=== PATIENT | male | born 1995 | race Caucasian/White ===

== ENCOUNTER 2020-01-20 13:04 | Emergency (ER) | payer BC, SELFPAY ==
--- NOTE | ~2020-01-20 | CT_ITS ---
EXAMINATION: CT brain wo con DATE: 01/20/2020 14:51 INDICATION: Head injury. TECHNIQUE: Computed tomography (CT) of the head was performed without intravenous contrast. The mA wa s adjusted according to patient size. Iterative reconstruction technique was employed. The dose-lengt h product was 1210.67 mGy-cm. COMPARISON: None FINDINGS: Motion artifact is noted. There is no intracranial hemorrhage, acute infarction, or abnorma l intracranial mass lesion. The ventricles are normal in size. The paranasal sinuses are clear. The m astoid air cells are normal. The orbits are normal. There is superior and right lateral scalp soft ti ssue swelling. IMPRESSION: 1. Normal brain. Sensitivity is moderately decreased by motion artifact. Reviewed, dictated and finalized at location A.
--- NOTE | ~2020-01-20 | CT_ITS ---
EXAMINATION: CT cervical spine wo con DATE: 01/20/2020 14:52 INDICATION: Head injury and laceration TECHNIQUE: Computed tomography (CT) of the cervical spine was performed without intravenous contrast. Automated exposure control and iterative reconstruction technique were employed. The dose-length pro duct was 304.55 mGy-cm. COMPARISON: None FINDINGS: Alignment is normal. Vertebral body heights are normal. No fracture. Disc heights are normal. Uncover tebral joints are normal. Mild bilateral facet osteoarthritis at C7-T1. No central canal or neural fo raminal stenosis. Cervical soft tissues are unremarkable. Utilized airway and apices of lungs are richard ar. Plate and screw fixation along the right clavicle. IMPRESSION: 1. No acute osseous abnormality. Reviewed, dictated and finalized at location A.
[2020-01-20 13:04] VITALS: BP 129/75; PULSE 82; RESP 18; TEMP 37.4; O2SAT 99
--- NOTE | 2020-01-20 13:21 | PC.NURSE ---
Pt trying to hit head on wall in ED room 11 on arrival. Pt is alert and not answering questions at this time. Pt states Take off your disguise repeatedly. Pt handcuffed to stretcher, has free movement of limbs. VSS. PD at bedside.
--- NOTE | 2020-01-20 13:47 | ED.GENADULT ---
HPI - General Adult General Chief complaint: Psychiatric Symptoms Stated complaint: HEAD LAC Time Seen by Provider: 01/20/20 13:29 Source: police Mode of arrival: EMS Limitations: other (agitated) History of Present Illness HPI narrative: This patient is a 24 year old male history of schizophrenia who presents in police custody for evaluation of head injury. The staff weapons officer at bedside states patient was arrested and he starting hitting his head on car window. He states patient also hit his head on concrete twice with no LOC. He states he needs medical clearance since patient hit his head. He states patient has history of this in order to prevent arrest. PAtient states is not cooperative with history. He has no complaints other than he is being held against his will. Related Data Allergies Allergy/AdvReac Type Severity Reaction Status Date / Time Penicillins Allergy Severe Nausea And Verified 07/02/17 11:00 Vomiting Review of Systems Review of Systems: All systems reviewed & are unremarkable except as noted in HPI and below PMFSH Family History Family History (Updated 07/02/17 @ 10:59 by DOCTOR UNKNOWN) Mother Patient's mother is in good health Father Patient's father is in good health Social History Social History Smoking status: Never smoker Alcohol intake: current Exam Const: General: no acute distress and alert HENMT: Head: hematoma (small superficial laceration left parietal) right parietal Eyes: Pupils: Equal, round and reactive pupils present EOM: EOMs intact bilaterally Neck: Neck: normal visual inspection and no lymphadenopathy Chest: Chest palpation & inspection: normal inspection of the chest Resp: Effort & Inspection: normal respiratory effort Auscultation: clear to auscultation bilaterally Cardio: Rate: regular rate Rhythm: regular rhythm Heart sounds: no murmurs GI: GI Palp: Yes Soft to palpation, No Tenderness to palpation present (GI), No Guarding due to palpation present (GI) and No Rigid due to palpation Course Reevaluation(s) Reevaluation #1: Patient apparently eloped when he returned to room from CT. Date: 01/20/20 Time: 15:00 Vital Signs Vital signs: Vital Signs Temperature 99.4 F 01/20/20 13:04 Pulse Rate 82 01/20/20 13:04 Respiratory Rate 18 01/20/20 13:04 Blood Pressure 129/75 01/20/20 13:04 Pulse Oximetry 99 01/20/20 13:04 Temperature 99.4 F 01/20/20 13:04 Pulse Rate 89 01/20/20 14:36 Respiratory Rate 14 01/20/20 14:36 Blood Pressure 122/73 01/20/20 14:36 Pulse Oximetry 98 01/20/20 14:36 Medical Decision Making Vital Signs Vital Signs: Vital Signs Temperature 99.4 F 01/20/20 13:04 Pulse Rate 82 01/20/20 13:04 Respiratory Rate 18 01/20/20 13:04 Blood Pressure 129/75 01/20/20 13:04 Pulse Oximetry 99 01/20/20 13:04 Temperature 99.4 F 01/20/20 13:04 Pulse Rate 89 01/20/20 14:36 Respiratory Rate 14 01/20/20 14:36 Blood Pressure 122/73 01/20/20 14:36 Pulse Oximetry 98 01/20/20 14:36 Imaging Data Radiologist's impression: ITS Impressions Head CT 01/20/20 14:59 IMPRESSION: 1. Normal brain. Sensitivity is moderately decreased by motion artifact. Cervical Spine CT 01/20/20 15:01 IMPRESSION: 1. No acute osseous abnormality. Discharge Plan Discharge Clinical Impression: CHI (closed head injury) Patient Disposition: Elopement Ater Seen by Prov Condition: Stable Follow-up/Referrals: PHYSICIAN,HOTEL RECEPTIONIST [Primary Care Provider] -
[2020-01-20 14:36] VITALS: BP 122/73; PULSE 89; RESP 14; O2SAT 98
--- NOTE | 2020-01-20 15:16 | PC.NURSE ---
Per Chery RAMIREZ, Charge nurse pt eloped from ED room 11. Pts handcuffs were removed for CT scan, PD at bedside left room to discuss POC for pt due to making suicidal statements. Pt exited through EMS doors and was followed by PD.
== END 2020-01-20 15:16 | disposition left against medical advice (07) ==
PROVIDERS: Emergency Provider General Practice
DX: S09.90XA Unspecified injury of head, initial encounter (principal); W22.8XXA Striking against or struck by other objects, initial encounter
CPT/HCPCS: 70450; 72125; 99284

== ENCOUNTER 2020-01-27 12:52 | Emergency (ER) | payer BC, SELFPAY ==
[2020-01-27 12:58] VITALS: BP 149/90; PULSE 111; RESP 15; TEMP 36.9; O2SAT 98
--- NOTE | 2020-01-27 13:15 | PC.NURSE ---
ERP Dr. Oquendo at bedside for assessment.
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
[2020-01-27 13:43] LABS: Basophils Absolute Auto 0.1 K/mm3 (0.0-0.1); Basophils Percent Auto 0.5 % (0.2-1.2); Eosinophils Absolute Auto 0.4 K/mm3 (0-0.3); Eosinophils Percent Auto 4.5 % (0-4.4); Hematocrit 42.1 % (42.0-52.0); Hemoglobin 14.6 g/dL (14.0-18.0); Immature Granulocyte Absolute 0.04 K/mm3 (0.00-0.031); Immature Granulocyte Percent A 0.4 % (0-0.5); Lymphocytes Percent Auto 18.7 % (18.3-44.2); Mean Corpuscular HGB Conc 34.7 g/dl (32-36); Mean Corpuscular Hemoglobin 29.9 pg (26-34); Mean Corpuscular Volume 86.1 fl (80-100); Mean Platelet Volume 11.4 fl (7.4-10.4); Monocytes Absolute Auto 0.8 K/mm3 (0.1-0.6); Monocytes Percent Auto 8.7 % (2.6-8.5); Neutrophils Absolute Auto 6.1 K/mm3 (1.3-6.7); Neutrophils Percent Auto 67.2 % (45.5-73.1); Platelet Count Result 162 k/mm3 (150-375); Red Blood Count 4.89 M/mm3 (4.6-6.20); Red Cell Distribution Width 12.8 % (11.5-14.5); White Blood Count 9.1 K/mm3 (4.5-10.0)
[2020-01-27 13:52] LABS: Add Urine Microscopic? YES; Appearance Urine Clear (Clear); Bilirubin Urine Negative (Negative); Blood Urine Negative (Negative); Color Urine Yellow (Yellow); Glucose Urine UA Negative (Negative); Ketones Urine Negative (Negative); Leukocyte Esterase Ur Negative LEU/UL (Negative); Mucus Urine Rare /lpf; Nitrate Urine Negative (Negative); Protein Urine Negative (Negative); RBC Urine 0-2 /hpf (0-2); Specific Grav Ur 1.025 (1.001-1.035); WBC Urine 0-3 /hpf
[2020-01-27 13:58] LABS: Alanine Aminotransferase 48 U/L (4-50); Alkaline Phosphatase 56 U/L (38-126); Aspartate Amino Transferase 55 U/L (17-59); Bilirubin,Total 0.2 mg/dL (0.2-1.3); Blood Urea Nitrogen 16 mg/dL (9-20); Calcium 8.8 mg/dL (8.4-10.2); Carbon Dioxide 27 mmol/L (22-30); Chloride 105 mmol/L (98-107); Estimated CRCL calculation 136 ml/min; Estimated Glomerular Filt Rate > 60; Glucose 110 mg/dL (75-110); Potassium 4.4 mmol/L (3.4-5.0); Sodium 137 mmol/L (137-145)
[2020-01-27 13:59] LABS: Barbiturate Screen Urine Negative (Negative); Benzodiazepines Screen Urine Negative (Negative)
[2020-01-27 14:00] LABS: Acetaminophen < 10 ug/mL (10-30); Ethanol < 10 mg/dL (<10); Salicylate < 1.0 mg/dL (2-20)
[2020-01-27 14:27] LABS: Cannabinoid Screen Urine Positive (Negative); Cocaine Screen Urine Negative (Negative); Methadone Screen Urine Negative (Negative); Opiate Screen Urine Negative (Negative); Phencyclidine Screen Urine Negative (Negative)
[2020-01-27 14:28] LABS: Amphetamine Screen Urine Positive (Negative)
[2020-01-27 14:29] LABS: Thyroid Stimulating Hormone 0.879 uIU/mL (0.465-4.680)
--- NOTE | 2020-01-27 16:13 | PC.NURSE ---
PER ARLETTE FROM CRISIS SHE IS WORKING ON PT PLACEMENT, STATES THAT SHE HAS BEEN DENIED A BED FROM [facility], WILL CONTINUE TO ATTEMPT.
--- NOTE | 2020-01-27 16:23 | PC.NURSE ---
PT REPORT GIVEN TO JAMES CAMPBELL AT THIS TIME, SHE HAS ASSUMED PT CARE. PT RESTING IN ROOM 15, VSS, SITTER AT BEDSIDE.
[2020-01-27 16:39] VITALS: BP 122/81; PULSE 79; RESP 18; O2SAT 99
[2020-01-27] MEDS: LORAZEPAM 0.5 MG TABLET PO ×2 (18:13→22:35)
[2020-01-27 18:36] VITALS: BP 142/91; PULSE 91; RESP 18; O2SAT 100
--- NOTE | 2020-01-27 18:50 | PC.NURSE ---
[facility] called and states they have no beds
--- NOTE | 2020-01-27 20:08 | PC.NURSE ---
1999- pt standing outside of room, asked to return to the room. pt did so, he was then looking at the EMS doors. Sitter still at bedside, security notified. Security at bedside.
--- NOTE | 2020-01-27 22:50 | PC.NURSE ---
PACKET FAXED TO [facility] AT 7724 AT [phone].
--- NOTE | 2020-01-28 00:59 | PC.NURSE ---
ON 01/27/2020 AT 2226 SALOMON CALLED FROM [facility], THIS NURSE WAS UNAVAILABLE TO SPEAK WITH HER AT THAT TIME. US PICKARD TOOK MESSAGE TO CALL [facility] BACK AT [phone]. THIS RN CALLED [facility] BACK AT 2238, LEFT MESSAGE FOR [facility]. NO RETURN CALL FROM [facility] OF [facility], AT WHICH TIME THIS RN CALLED AGAIN, AGAIN NO ANSWER AND MESSAGE LEFT FOR [facility].
--- NOTE | 2020-01-28 02:55 | PC.NURSE ---
Per Olivia at [facility], she is waiting to hear from the MD to call her back from her facility.
[2020-01-28 06:07] VITALS: BP 124/65; PULSE 70; RESP 18; O2SAT 99
[2020-01-28 07:19] VITALS: BP 101/49; PULSE 77; RESP 20; TEMP 36.6; O2SAT 98
[2020-01-28] MEDS: LORAZEPAM 0.5 MG TABLET PO (10:58)
--- NOTE | 2020-01-28 11:58 | PC.NURSE ---
Report given to [facility] at this time. Transferred to [facility] at this time.
== END 2020-01-28 12:21 ==
PROVIDERS: Emergency Provider Emergency Medicine
DX: F20.9 Schizophrenia, unspecified (principal)
CPT/HCPCS: 36415; 80053; 80307; 81001; 84443; 85025; 99285; A9270

== ENCOUNTER 2020-02-04 14:13 | Emergency (ER) | payer BC, SELFPAY ==
[2020-02-04 14:22] VITALS: BP 139/118; PULSE 126; RESP 14; TEMP 36.7; O2SAT 99
[2020-02-04] MEDS: ceFAZolin SODIUM 1 GM VIAL IM (15:26)
[2020-02-04] MEDS: TETANUS,DIPHTHERIA,AC PERTUSSIS ADULT (0.5 ML) BOOSTRIX IM (15:27)
[2020-02-04] MEDS: WATER, STERILE FOR INJECTION 10 ML VIAL XX ×2 (15:28→16:40)
--- NOTE | 2020-02-04 15:34 | PC.NURSE ---
[place] [employer] Officer Wesley Vann at bedside with Pt. Pt states that he is a nuclear bomb and that if he falls asleep he will explode. Pt. continues to say the n word and using a lot of profanity. Pt. advised we do not tolerate that kind of behavior here and Pt. is unable to be redirected.
--- NOTE | 2020-02-04 15:39 | PC.NURSE ---
Pt. in police custody, hand cuffed to bed due to aggression and known to self-harm themselves. Pt. is very manic at this time.
--- NOTE | 2020-02-04 16:25 | PC.NURSE ---
Pt. not cooperating with EDP for suturing. Attempted to compromise with Pt. to remove one handcuff to do procedure and Pt. refusing. Pt. yelling and flailing feet. It is not safe for EDP to placed sutures with Pt. behavior. Pt. is still not SI/HI at this time. RN attempted to talk Pt. into letting EDP place suture and still uncooperative. Per EDP via verbal order readback, wrap the wound in a dressing.
[2020-02-04] MEDS: OLANZapine 10 MG INJ VIAL 5 MG IM (16:40)
--- NOTE | 2020-02-04 16:42 | PC.NURSE ---
Pt. is becoming loud and verbally abusive in PD cuffs, shouting profanities and inappropriate words. Per EDP via verbal order readback, give 5mg IM of Olanzapine to help with Pt. agitation and hallucinations. Will reevaluate Pt. to see if Pt. will be able to let EDP suture Pt.
--- NOTE | 2020-02-04 16:43 | PC.NURSE ---
2.1 ml of sterile water was used to mix the olanzapine in the via not 10ml. Only 5mg (1ml) was administered per EDP orders.
--- NOTE | 2020-02-04 17:40 | PC.NURSE ---
Pt. cooperated with EDP and RN to have sutures placed. Procedure was successful. Dirt and dried blood removed off Pt. Will give Pt. paper scrubs and socks prior to discharge.
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
--- NOTE | 2020-02-04 18:01 | PC.NURSE ---
Pt. requested to use the rest room prior to discharge. Pt. wheeled to the rest room with PD and once Pt. sat onto the toilet the Pt. threw themselves off the toilet. Pt refused paper scrubs and socks and became uncooperative. Pt. was discharged into police custody and was wheeled out to their police cruiser.
[2020-02-04 18:03] VITALS: BP 135/100; PULSE 102; RESP 16; O2SAT 99
== END 2020-02-04 18:06 ==
PROVIDERS: Emergency Provider Family Medicine
DX: S91.312A Laceration without foreign body, left foot, initial encounter (principal); W26.9XXA Contact with unspecified sharp object(s), initial encounter; Z23 Encounter for immunization; F20.9 Schizophrenia, unspecified
CPT/HCPCS: 12002; 90471; 90715; 96372; 99284; J0690

== ENCOUNTER 2020-04-22 12:25 | Emergency (ER) | payer BC, SELFPAY ==
[2020-04-22] VITALS (9 sets, daily range): BP systolic 105–166; BP diastolic 54–99; PULSE 70–118; RESP 14–117; O2SAT 97–100
--- NOTE | ~2020-04-22 | XR_ITS ---
EXAMINATION: XR chest 1V portable 04/22/2020 12:45 INDICATION: Altered mental status. Dyspnea. PROCEDURE: AP portable chest COMPARISON: 05/30/2018 FINDINGS: The lungs are clear. The cardiomediastinal silhouette is within normal limits. There are no pleural effusions. There is no pneumothorax suspected. IMPRESSION: 1: NO ACUTE CARDIOPULMONARY DISEASE. Reviewed, dictated and finalized at location A.
[2020-04-22 12:46] LABS: Basophils Percent Auto 0.4 % (0.2-1.2); Eosinophils Percent Auto 0.1 % (0-4.4); Hematocrit 44.1 % (42.0-52.0); Hemoglobin 14.8 g/dL (14.0-18.0); Immature Granulocyte Absolute 0.02 K/mm3 (0.00-0.031); Immature Granulocyte Percent A 0.3 % (0-0.5); Lymphocytes Absolute Auto 2.51 K/mm3 (0.9-3.2); Lymphocytes Percent Auto 35.5 % (18.3-44.2); Mean Corpuscular HGB Conc 33.6 g/dl (32-36); Mean Corpuscular Hemoglobin 28.5 pg (26-34); Mean Platelet Volume 10.8 fl (7.4-10.4); Monocytes Absolute Auto 0.6 K/mm3 (0.1-0.6); Monocytes Percent Auto 8.3 % (2.6-8.5); Neutrophils Absolute Auto 3.9 K/mm3 (1.3-6.7); Neutrophils Percent Auto 55.4 % (45.5-73.1); Platelet Count Result 259 k/mm3 (150-375); Red Blood Count 5.19 M/mm3 (4.6-6.20); Red Cell Distribution Width 12.2 % (11.5-14.5); White Blood Count 7.1 K/mm3 (4.5-10.0)
[2020-04-22 12:56] LABS: Magnesium 2.2 mg/dL (1.6-2.3)
--- NOTE | 2020-04-22 12:58 | ECG_ITS ---
Measurements Intervals [place] Rate: 128 P: 66 HI: 129 QRS: 83 QRSD: 90 T: 0 QT: 334 QTc: 489 Interpretive Statements SINUS TACHYCARDIA ST-T WAVE ABNORMALITY IN INFERIOR LEADS- CONSIDER ISCHEMIA BASELINE ARTIFACT- I, II, AVR, AVF, V3 ABNORMAL ECG Electronically Signed On 04-22-2020 14:23:33 CDT by Phillip Gardiner D.O.
[2020-04-22 13:00] LABS: Alanine Aminotransferase 24 U/L (4-50); Albumin Level 4.3 g/dL (3.5-5.1); Alkaline Phosphatase 66 U/L (38-126); Anion Gap 17 mmol/L (8-16); Aspartate Amino Transferase 35 U/L (17-59); Bilirubin,Total 0.2 mg/dL (0.2-1.3); Blood Urea Nitrogen 11 mg/dL (9-20); Calcium 8.6 mg/dL (8.4-10.2); Carbon Dioxide 20 mmol/L (22-30); Chloride 104 mmol/L (98-107); Estimated CRCL calculation 104 ml/min; Estimated Glomerular Filt Rate > 60; Glucose 114 mg/dL (75-110); Potassium 3.5 mmol/L (3.4-5.0); Sodium 141 mmol/L (137-145)
[2020-04-22 13:02] LABS: Ethanol 185 mg/dL (<10)
--- NOTE | 2020-04-22 13:09 | PC.NURSE ---
called lab at [id number] to add on CK
--- NOTE | 2020-04-22 13:15 | PC.NURSE ---
PT TO ED WRITHING, MAKING NO SENSE. PT UNABLE TO RESPOND POSITIVELY TO STAFF. ORDER FROM DR CORBETT TO PLACE THE PT IN SOFT RESTRAINTS
[2020-04-22] MEDS: HALOPERIDOL LACTATE 5 MG/ML VIAL 10 MG IV PUSH (13:16)
[2020-04-22] MEDS: LACTATED RINGERS 1,000 ML 999 ML IV CONT (13:16)
[2020-04-22 13:18] LABS: Creatine Kinase 126 U/L (55-170)
[2020-04-22 13:20] LABS: Add Urine Microscopic? NO; Appearance Urine Clear (Clear); Bilirubin Urine Negative (Negative); Blood Urine Negative (Negative); Color Urine Straw (Yellow); Glucose Urine UA Negative (Negative); Ketones Urine Negative (Negative); Leukocyte Esterase Ur Negative LEU/UL (Negative); Nitrate Urine Negative (Negative); Protein Urine Negative (Negative); Specific Grav Ur 1.005 (1.001-1.035); Urobilinogen Urine Negative mg/dL (<2.0)
[2020-04-22 13:31] LABS: Amphetamine Screen Urine Negative (Negative); Barbiturate Screen Urine Negative (Negative); Benzodiazepines Screen Urine Negative (Negative); Cannabinoid Screen Urine Positive (Negative); Cocaine Screen Urine Negative (Negative); Methadone Screen Urine Negative (Negative); Opiate Screen Urine Negative (Negative); Phencyclidine Screen Urine Negative (Negative)
--- NOTE | 2020-04-22 13:48 | ED.AMS ---
HPI - Altered Mental Status General Chief Complaint: Altered Mental Status Stated Complaint: combative Time Seen by Provider: 04/22/20 12:33 Source: EMS and police Mode of arrival: EMS Limitations: clinical condition History of Present Illness HPI narrative: 25-year-old male Cannot get any history from him but according to EMS he is pretty well known to them He is previously been here a couple of times with psych related issues He was brought to the attention of the police because of some bizarre behaviors happening in the community EMS gave him ketamine for sedation When he arrives here he is sedated and giggling complaint: altered mental status Related Data Home Medications Medication Instructions Recorded Confirmed olanzapine [Zyprexa] 2.5 mg PO DAILY 01/27/20 Allergies Allergy/AdvReac Type Severity Reaction Status Date / Time Penicillins Allergy Severe Nausea And Verified 01/27/20 13:17 Vomiting Review of Systems Review of Systems: ROS unobtainable: Yes unobtainable due to medical condition and unobtainable due to mental status PMFSH Social History Social History Smoking status: Never smoker Alcohol intake: current Gender identity (if verbalized by the patient): Male Exam Const: General: no acute distress; No alert Nutritional Appearance: well nourished Orientation/consciousness: No patient oriented x3 Limitations: altered mental status HENMT: Head: normocephalic and atraumatic Ears: external ears normal General nose exam: No nasal discharge present and no epistaxis Face and sinus: face symmetric Mouth: Yes lip normal, Yes tongue normal and Yes moist mucous membranes Throat: other (No exudate, no erythema) Eyes: Conjunctivae: conjunctivae normal Sclera: sclerae normal Pupils: Equal, round and reactive pupils present EOM: EOMs intact bilaterally Neck: Neck: full ROM, no lymphadenopathy and supple Thyroid: thyroid normal Chest: Chest palpation & inspection: no tenderness Resp: Effort & Inspection: normal respiratory effort Auscultation: clear to auscultation bilaterally, no rales, no rhonchi, no wheezes and other (breath sounds equal) Cardio: Rate: regular rate Rhythm: regular rhythm Heart sounds: no gallops and no murmurs GI: Inspection: non-distended GI Palp: No abdominal tenderness and Yes Soft to palpation Auscultation: other (bowel sounds present) : General: Yes no CVA tenderness Back/Spine/Pelvis: Thoracic/Lumbar Spine: thoracic and lumbar spine normal to inspection Skin: General skin exam: normal color and no rashes or lesions noted Neuro: General: No patient oriented x3 (alert), moves all extremities and no focal motor deficits Cranial nerves: Yes facial symmetry Speech: No normal speech Motor exam (neuro): Motor abnormalities not present Extrem: General: normal to inspection, full ROM and no pedal edema Course Vital Signs Vital signs: Vital Signs Pulse Rate 118 H 04/22/20 12:21 Respiratory Rate 117 H 04/22/20 12:21 Blood Pressure 166/99 H 04/22/20 12:21 Pulse Oximetry 98 04/22/20 12:21 Pulse Rate 68 04/23/20 07:11 Respiratory Rate 19 04/23/20 07:11 Blood Pressure 109/89 04/23/20 07:11 Pulse Oximetry 99 04/23/20 07:11 MDM - Altered Mental Status MDM Narrative Medical decision making narrative: Plan to sedate, eval for intoxicants, sober re-eval Final dispo pending at signout Lab Data Result diagrams: 04/22/20 12:38 04/22/20 12:38 Labs: Lab Results 04/22/20 04/22/20 04/22/20 Range/Units 12:36 12:36 12:38 WBC 7.1 (4.5-10.0) K/mm3 RBC 5.19 (4.6-6.20) M/mm3 Hgb 14.8 (14.0-18.0) g/dL Hct 44.1 (42.0-52.0) % MCV 85.0 (80-100) fl MCH 28.5 (26-34) pg MCHC 33.6 (32-36) g/dl RDW 12.2 (11.5-14.5) % Plt Count 259 D (150-375) k/mm3 MPV 10.8 H (7.4-10.4) fl Immature Gran % (Au
--- NOTE | 2020-04-22 14:00 | PC.NURSE ---
PT STILL DISORIENTED, ACTING AND SPEAKING BIZARRELY, TRYING TO CURSE OUT STAFF AN THREATENING TO KILL REMAINS IN SOFT RESTRAINTS, SITTER AT BEDSIDE
--- NOTE | 2020-04-22 15:00 | PC.NURSE ---
BOUNCING UP AND DOWN ON BED, HARD TIME BEING REDIRECTED. PT WOULD THEN LAY BACK DOWN. PT STILL DISORIENTED REMAINS IN SOFT RESTRAINTS SITTER AT BEDSIDE
--- NOTE | 2020-04-22 15:30 | PC.NURSE ---
called lab to add on Free T4 at 1530
[2020-04-22 16:03] LABS: Free T4 Free Thyroxine 1.43 ng/mL (0.78-2.19)
--- NOTE | 2020-04-22 17:10 | PC.NURSE ---
PT STARTING TO SHOW SIGNS OF REGAINING CALMNESS, PT REMOVED FROM ANKLE RESTRAINTS, MADE AWARE THAT OTHER RESTRAINTS WOULD BE REMOVED SHORTLY IF BEHAVIOR CONTINUED TO IMPROVE
--- NOTE | 2020-04-22 18:00 | PC.NURSE ---
PT APPEARED TO BE SLEEPING, EQUAL CHEST RISE AND FALL NOTED, PT NOW OUT OF ALL RESTRAINTS. SITTER STILL AT BEDSIDE
--- NOTE | 2020-04-22 19:30 | PC.NURSE ---
pt remains in bed, eyes closed, equal chest rise and fall no negative behaviors noted sitter at bedside
[2020-04-23] VITALS (8 sets, daily range): BP systolic 98–126; BP diastolic 46–89; PULSE 51–68; RESP 12–19; O2SAT 97–99
== END 2020-04-23 07:13 | disposition home or self-care (01) ==
PROVIDERS: Emergency Medicine; Emergency Provider Emergency Medicine
DX: R41.82 Altered mental status, unspecified (principal); F12.921 Cannabis use, unspecified with intoxication delirium
CPT/HCPCS: 36415; 51701; 71045; 80053; 80307; 81003; 82550; 83735; 84439; 84443; 85025; 93005; 96361; 96374; 99285; J1630; J7120

== ENCOUNTER 2020-05-04 06:08 | Emergency (ER) | payer BC, SELFPAY ==
[2020-05-04 06:06] VITALS: BP 164/93; PULSE 78; RESP 16; TEMP 36.8; O2SAT 100
--- NOTE | 2020-05-04 06:25 | ECG_ITS ---
Measurements Intervals [place] Rate: 87 P: 75 MA: 104 QRS: 91 QRSD: 98 T: 21 QT: 351 QTc: 422 Interpretive Statements SINUS RHYTHM WITH MARKED SINUS ARRHYTHMIA ATRIAL PREMATURE COMPLEX RIGHT AXIS DEVIATION NONSPECIFIC ST & T-WAVE ABNORMALITY- ANTEROLAT/INF LEADS BASELINE ARTIFACT- I, II, AVR, AVL BORDERLINE ECG Electronically Signed On 05-04-2020 11:09:48 CDT by Phillip Gardiner D.O.
[2020-05-04 06:39] LABS: Basophils Percent Auto 0.4 % (0.2-1.2); Hematocrit 47.4 % (42.0-52.0); Hemoglobin 15.7 g/dL (14.0-18.0); Immature Granulocyte Absolute 0.06 K/mm3 (0.00-0.031); Immature Granulocyte Percent A 0.5 % (0-0.5); Lymphocytes Absolute Auto 2.14 K/mm3 (0.9-3.2); Lymphocytes Percent Auto 18.7 % (18.3-44.2); Mean Corpuscular HGB Conc 33.1 g/dl (32-36); Mean Corpuscular Volume 84.6 fl (80-100); Monocytes Absolute Auto 0.9 K/mm3 (0.1-0.6); Monocytes Percent Auto 8.1 % (2.6-8.5); Neutrophils Absolute Auto 8.3 K/mm3 (1.3-6.7); Neutrophils Percent Auto 72.3 % (45.5-73.1); Platelet Count Result 246 k/mm3 (150-375); Red Cell Distribution Width 12.5 % (11.5-14.5); White Blood Count 11.4 K/mm3 (4.5-10.0)
[2020-05-04 06:51] LABS: Acetaminophen < 10 ug/mL (10-30); Alanine Aminotransferase 17 U/L (4-50); Albumin Level 4.7 g/dL (3.5-5.1); Alkaline Phosphatase 82 U/L (38-126); Anion Gap 12 mmol/L (8-16); Aspartate Amino Transferase 28 U/L (17-59); Bilirubin,Total 0.7 mg/dL (0.2-1.3); Blood Urea Nitrogen 13 mg/dL (9-20); Calcium 9.8 mg/dL (8.4-10.2); Carbon Dioxide 26 mmol/L (22-30); Chloride 100 mmol/L (98-107); Estimated CRCL calculation 101 ml/min; Estimated Glomerular Filt Rate > 60; Ethanol < 10 mg/dL (<10); Glucose 145 mg/dL (75-110); Potassium 3.5 mmol/L (3.4-5.0); Salicylate < 1.0 mg/dL (2-20); Sodium 138 mmol/L (137-145)
--- NOTE | 2020-05-04 06:51 | ED.GENADULT ---
HPI - General Adult General Chief complaint: Psychiatric Symptoms <Jeremías Blake MD - Last Filed: 05/05/20 07:06> Stated complaint: SWALLOWED UNKNOWN AMT OF PILLS <Jeremías Blake MD - Last Filed: 05/05/20 07:06> Time Seen by Provider: 05/04/20 07:01 <Jeremías Blake MD - Last Filed: 05/05/20 07:06> History of Present Illness HPI narrative: Pt was stopped by PD and when he was questioned took a bunch of pills in his pocket which he claims is his ADD meds . Pt denies suicidal or homicial ideations. <Jeremías Blake MD - Last Filed: 05/05/20 07:06> Related Data Home medications: Home Medications Medication Instructions Recorded Confirmed olanzapine [Zyprexa] 2.5 mg PO DAILY 01/27/20 <Jeremías Blake MD - Last Filed: 05/05/20 07:06> Allergies/adverse reactions: Allergies Allergy/AdvReac Type Severity Reaction Status Date / Time Penicillins Allergy Severe Nausea And Verified 01/27/20 13:17 Vomiting <Jereímas Blake MD - Last Filed: 05/05/20 07:06> Review of Systems Review of Systems: All systems reviewed & are unremarkable except as noted in HPI and below <Jeremías Blake MD - Last Filed: 05/05/20 07:06> Constitutional: Constitutional: Denies body ache(s), Denies chills, Denies excessive sweating, Denies fatigue, Denies fever(s), Denies headache(s), Denies lethargy, Denies malaise, Denies weakness and Denies weight loss <Jeremías Blake MD - Last Filed: 05/05/20 07:06> Eyes: Eyes: Denies blurry vision, Denies change in vision and Denies loss of vision <Jeremías Blake MD - Last Filed: 05/05/20 07:06> ENT: Denies dizziness, Denies ear discharge, Denies headache(s), Denies lip swelling, Denies epistaxis, Denies nasal congestion, Denies neck pain, Denies throat swelling and Denies tongue swelling <Jeremías Blake MD - Last Filed: 05/05/20 07:06> Cardiovascular: Cardiovascular: Denies chest pain, Denies chest pain at rest, Denies chest pain with activity, Denies diaphoresis, Denies rapid heart rate, Denies edema, Denies irregular heart rhythm, Denies lightheadedness, Denies palpitations, Denies dyspnea and Denies dyspnea on exertion <Jeremías Blake MD - Last Filed: 05/05/20 07:06> Respiratory: Respiratory: Denies chest congestion, Denies cough, Denies hemoptysis, Denies dyspnea and Denies dyspnea on exertion <Jeremías Blake MD - Last Filed: 05/05/20 07:06> Gastrointestinal: Gastrointestinal: Denies abdominal pain, Denies melena, Denies hematochezia, Denies diarrhea, Denies nausea, Denies vomiting and Denies hematemesis <Jeremías Blake MD - Last Filed: 05/05/20 07:06> Musculoskeletal: Musculoskeletal: Denies abnormal gait, Denies deformity, Denies joint swelling, Denies limited range of motion, Denies neck pain and Denies numbness <Jeremías Blake MD - Last Filed: 05/05/20 07:06> Neurologic: Denies Abnormal speech present, Denies abnormal gait, Denies confusion, Denies dizziness, Denies headache(s), Denies focal weakness, Denies loss of vision, Denies numbness, Denies Other visual disturbances, Denies Sensory deficit (Neuro) and Denies weakness <Jeremías Blake MD - Last Filed: 05/05/20 07:06> Psychiatric: Psychiatric: Denies confusion and Denies depression <Jeremías Blake MD - Last Filed: 05/05/20 07:06> Endocrine: Endocrine: Denies cold intolerance, Denies excessive sweating, Denies fatigue, Denies heat intolerance and Denies palpitations <Jeremías Blake MD - Last Filed: 05/05/20 07:06> Hematologic/Lymphatic: Hematologic/Lymphatic: Denies easy bleeding and Denies easy bruising <Jeremías Blake MD - Last Filed: 05/05/20 07:06> Allergic/Immunologic: Allergic/Immunologic: Denies lip swelling, Denies throat swelling and Denies tongue swelling <Jeremías Blake MD - Last Filed: 05/05/20 07:06> [facility] Social History Social History: Social History Smo
[2020-05-04] MEDS: LORazepam INJ (*CRX) 2 MG/ML VIAL IM ×2 (08:05→15:20)
--- NOTE | 2020-05-04 08:05 | PC.NURSE ---
pt refused iv start and ns infusion. pt informed nurse i will shoot you in your head with my sniper travis if you stick me . ativan 2 mg im per physician's orders. pt abdelrahman injection well without incident. continues to refuse iv start, fluids and urinary straight cath. pt continues to ramble continuously about politics, animals, foreign persons, and sex. rails up x 2 for safety after sedative given. lights out for comfort and calming. furniture and projectile objects removed from room. pt remains on telemetry and bp but will not leave spo2 on finger. md and security staff aware of pt behavior.
[2020-05-04 08:12] VITALS: BP 132/87; PULSE 110; RESP 20
--- NOTE | 2020-05-04 08:56 | PC.NURSE ---
pt continues to talk nonsensical nonstop. pt continues to refuse urinary cath. pt informed that a cath will be placed within next hour if he does not provide sample.
[2020-05-04 09:51] LABS: Barbiturate Screen Urine Negative (Negative); Benzodiazepines Screen Urine Negative (Negative)
[2020-05-04 10:05] LABS: Cannabinoid Screen Urine Negative (Negative); Cocaine Screen Urine Negative (Negative); Methadone Screen Urine Negative (Negative); Opiate Screen Urine Negative (Negative); Phencyclidine Screen Urine Negative (Negative)
[2020-05-04 10:10] LABS: Amphetamine Screen Urine Positive (Negative)
--- NOTE | 2020-05-04 11:08 | PC.NURSE ---
sitter now in doorway for close obs due to pt trying to leave room. pt has intermittent periods of verbal aggression. pt has not attempted to harm staff or himself
[2020-05-04 15:20] VITALS: BP 151/108; PULSE 154; RESP 18; O2SAT 99
--- NOTE | 2020-05-04 15:20 | PC.NURSE ---
ativan im per md order. pt's heart rate 150 and pt is refusing iv start and iv fluids. pt agitated again and pacing room.
--- NOTE | 2020-05-04 16:24 | PC.NURSE ---
pacing in doorway but not aggressive to staff.
[2020-05-04 16:44] LABS: SARS-CoV-2 RNA PCR Negative
[2020-05-04 17:51] VITALS: BP 141/94; PULSE 129; RESP 18; O2SAT 97
[2020-05-04] MEDS: SODIUM CHLORIDE 0.9% IV 1,000 ML 999 ML IV CONT (18:42)
--- NOTE | 2020-05-04 19:16 | PC.NURSE ---
pt pulled out iv cath intact while fluids infusing. pt rec'd approx 200 cc. notified. will not restart iv. pt calling family for ride home
--- NOTE | 2020-05-04 19:18 | PC.NURSE ---
Assumed care of pt. at this time. Report from JAMES Langston
--- NOTE | 2020-05-04 19:18 | PC.NURSE ---
Pt. on phone w/ sitter at side calling for a ride home.
--- NOTE | 2020-05-04 19:22 | PC.NURSE ---
pt bolted for door while walking back to room after using phone. pt rushed past sitter and ed staff. unable to catch pt. pt pushed through electric ems doors. staff went to parking lot to encourage pt to return to room to collect belongings. pt did not come back to ed and kept walking towards edge of hospital property. [place] police called to inform that pt roaming area in green psych scrubs
--- NOTE | 2020-05-04 19:24 | PC.NURSE ---
CALLED [employer] TO MAKE NOTE OF PT LEAVING ON FOOT.
== END 2020-05-04 19:20 | disposition home or self-care (01) ==
PROVIDERS: Emergency Medicine; Emergency Provider Emergency Medicine
DX: F19.921 Other psychoactive substance use, unspecified with intoxication with delirium (principal); Z20.828 Contact with and (suspected) exposure to other viral communicable diseases; I49.1 Atrial premature depolarization; R94.31 Abnormal electrocardiogram [ECG] [EKG]
CPT/HCPCS: 36415; 80053; 80307; 84443; 85025; 87635; 93005; 96360; 96372; 99284; C9803; J2060; J7030; U0003

== ENCOUNTER 2020-05-06 21:35 | Emergency (ER) | payer OTHER, BC, SELFPAY ==
[2020-05-06 21:39] VITALS: BP 158/71; PULSE 88; RESP 20; TEMP 37; O2SAT 95
--- NOTE | 2020-05-06 21:50 | PC.NURSE ---
Patient stating he is homeless for the past 2 weeks and drinks a beer daily as well as smokes marijuana daily. Patient states I just want to get some medicine for my headache and get some rest then I'll be okay to leave. ERP in room when patient stating this to this RN.
--- NOTE | 2020-05-06 22:40 | ED.GENADULT ---
HPI - General Adult General Chief complaint: Unspecified Stated complaint: head injury, chau, facial drooping Time Seen by Provider: 05/06/20 21:40 Source: patient Mode of arrival: ambulatory Limitations: no limitations History of Present Illness HPI narrative: 25 years old white male came by bus to the emergency room complaining of being homeless for the last 2 weeks, did not have good sleep over the last 2 days, and would like to have a place to sleep and to eat. Patient denies any suicidal or homicidal ideation. Patient reports smoking and drinking occasionally, denies drug use. Patient denies any fever, chills, nausea, vomiting, diarrhea, urinary symptoms, respiratory symptoms or chest pain. Currently complaining of head because of the lack of sleep. Patient reports, going to start a new job tomorrow Related Data Home Medications Medication Instructions Recorded Confirmed No Home Medications 05/06/20 05/06/20 Allergies Allergy/AdvReac Type Severity Reaction Status Date / Time Penicillins Allergy Severe Nausea And Verified 05/06/20 21:41 Vomiting Review of Systems Review of Systems: Narrative: CONSTITUTIONAL: Denies fever, chills, or sweats. EYES: Denies visual changes, redness, or discharge. ENT: Denies rhinorrhea, congestion, sore throat, or otalgia. CARDIOVASCULAR: Denies chest pain, palpitations, or edema. RESPIRATORY: Denies cough or dyspnea. GASTROINTESTINAL: Denies abdominal pain, nausea, vomiting, or diarrhea. GENITOURINARY: Denies dysuria or hematuria. SKIN: Denies rash or itching. MUSCULOSKELETAL: Denies back pain, joint pain, or myalgia. NEUROLOGIC: Denies headache, numbness, or weakness. PSYCHIATRIC: Denies anxiety or depression. PMFSH Social History Social History Smoking status: Never smoker Alcohol intake: current Gender identity (if verbalized by the patient): Male Sexual Orientation (if Verbalized by the Patient): Straight or Heterosexual Exam Narrative: Exam Narrative: General appearance: Well-developed, well-nourished Skin: Normal color Head: Normocephalic, nontraumatic Eyes: Clear conjunctiva ENT: Oropharynx normal, ears normal, nose normal Neck: Supple, nontender Chest and respiratory: Airway patent, no respiratory distress, no accessory muscle use Heart: Regular rate/rhythm Abdomen: Soft, nontender, no organomegaly, quiet bowel sounds Vascular: Normal peripheral pulses, normal capillary refill. Musculoskeletal: Normal range of motion, nontender back Neurologic: Alert and oriented ?3, [employer] is normal as tested, no gross motor deficit Course Course Emergency Course: Stable Reevaluation(s) Reevaluation #1: I talked to him that he cannot stay in ED for sleeping and eating. And he need to call friend, a family member or go to a assisted. Patient agreed and asked me for another 20 minutes. Again patient denies any suicidal or homicidal ideation at this time Date: 05/06/20 Time: 23:57 Vital Signs Vital signs: Vital Signs Temperature 37.0 C 05/06/20 21:39 Pulse Rate 88 05/06/20 21:39 Respiratory Rate 05/06/20 21:39 Blood Pressure 158/71 H 05/06/20 21:39 Pulse Oximetry 95 05/06/20 21:39 Temperature 37.0 C 05/06/20 21:39 Pulse Rate 88 05/06/20 21:39 Respiratory Rate 05/06/20 21:39 Blood Pressure 158/71 H 05/06/20 21:39 Pulse Oximetry 95 05/06/20 21:39 Medical Decision Making MDM Narrative Medical decision making narrative: Patient is homeless, looking for a place to sleep and the. Patient denying any suicidal or homicidal ideation. The plan to provide food and give him a few hours for sleep. Getting
[2020-05-06 23:05] LABS: Barbiturate Screen Urine Negative (Negative); Benzodiazepines Screen Urine Negative (Negative)
[2020-05-06 23:28] LABS: Cannabinoid Screen Urine Positive (Negative); Cocaine Screen Urine Negative (Negative); Methadone Screen Urine Negative (Negative); Opiate Screen Urine Negative (Negative); Phencyclidine Screen Urine Negative (Negative)
[2020-05-07 00:16] LABS: Amphetamine Screen Urine Positive (Negative)
== END 2020-05-07 00:23 | disposition home or self-care (01) ==
PROVIDERS: Emergency Provider Emergency Medicine
DX: Z59.0 Homelessness (principal)
CPT/HCPCS: 80307; 99283

== ENCOUNTER 2020-10-04 13:24 | Emergency (ER) | payer BC, SELFPAY ==
[2020-10-04 13:32] VITALS: BP 165/106; PULSE 97; RESP 18; TEMP 36.8; O2SAT 99
--- NOTE | 2020-10-04 14:00 | ECG_ITS ---
Measurements Intervals [place] Rate: 84 P: 63 IA: 172 QRS: 91 QRSD: 96 T: 54 QT: 367 QTc: 434 Interpretive Statements SINUS RHYTHM WITH SINUS ARRHYTHMIA RIGHT AXIS DEVIATION BASELINE ARTIFACT- I, II, III, AVR, AVL, AVF, V1-V3 BORDERLINE ECG Electronically Signed On 10-04-2020 14:19:47 [employer] by Phillip Gardiner D.O.
--- NOTE | 2020-10-04 14:39 | ED.GENADULT ---
HPI - General Adult General Chief complaint: Unspecified Stated complaint: huffing butane Time Seen by Provider: 10/04/20 13:56 Source: patient Mode of arrival: other (police) Limitations: no limitations History of Present Illness HPI narrative: Patient presents for evaluation after police were called on the patient for sniffing butane and giving him the option of coming to the hospital or going to shelter. Patient denies any symptoms. He denies any chest pain, sob, vomiting. He states he is wanting to go home and declines any additional intervention. Related Data Home Medications Medication Instructions Recorded Confirmed No Home Medications 05/06/20 05/06/20 Allergies Allergy/AdvReac Type Severity Reaction Status Date / Time Penicillins Allergy Severe Nausea And Verified 05/06/20 21:41 Vomiting Review of Systems Review of Systems: Narrative: CONSTITUTIONAL: Denies fever, chills, or sweats. EYES: Denies visual changes, redness, or discharge. ENT: Denies rhinorrhea, congestion, sore throat, or otalgia. CARDIOVASCULAR: Denies chest pain, palpitations, or edema. RESPIRATORY: Denies cough or dyspnea. GASTROINTESTINAL: Denies abdominal pain, nausea, vomiting, or diarrhea. GENITOURINARY: Denies dysuria or hematuria. SKIN: Denies rash or itching. MUSCULOSKELETAL: Denies back pain, myalgia, or joint pain NEUROLOGIC: Denies headache, numbness, dizziness, or weakness. PSYCHIATRIC: Denies anxiety or depression. [facility] Past Medical History Medical History (Updated 10/04/20 @ 14:46 by Edith Sow PA-C) Schizophrenia Family History Family History Mother Patient's mother is in good health Father Patient's father is in good health Social History Social History Smoking status: Never smoker Alcohol intake: current Gender identity (if verbalized by the patient): Male Exam Narrative: Exam Narrative: GENERAL: Well-appearing, well-nourished. HEAD: Normocephalic, atraumatic. CHEST: Patient speaking in clear sentences without difficulty. No respiratory distress. No gasping or hot potato voice. HEART: Regular rate and rhythm. Normal peripheral pulses. EXTREMITIES: No acute changes in ROM. No edema. SKIN: Warm, dry, no rash. NEURO: No focal deficits. Alert and oriented x3. PSYCH: Patient moves around anxiously. Course Vital Signs Vital signs: Vital Signs Temperature 98.2 F 10/04/20 13:32 Pulse Rate 97 10/04/20 13:32 Respiratory Rate 18 10/04/20 13:32 Blood Pressure 165/106 H 10/04/20 13:32 Pulse Oximetry 99 10/04/20 13:32 Temperature 98.2 F 10/04/20 13:32 Pulse Rate 97 10/04/20 13:32 Respiratory Rate 18 10/04/20 13:32 Blood Pressure 165/106 H 10/04/20 13:32 Pulse Oximetry 99 10/04/20 13:32 Medical Decision Making MDM Narrative Medical decision making narrative: Patient is A&OX3. He states he will be taking the bus home and not driving. He is constantly moving around, but will follow commands. He states he would prefer not to be touched anymore so ability to obtain physical exam is limited. He declines lab work and states he bang like to be immediately discharged. Patient EKG without findings of deadly rhythm. Vital Signs Vital Signs: Vital Signs Temperature 98.2 F 10/04/20 13:32 Pulse Rate 97 10/04/20 13:32 Respiratory Rate 18 10/04/20 13:32 Blood Pressure 165/106 H 10/04/20 13:32 Pulse Oximetry 99 10/04/20 13:32 Temperature 98.2 F 10/04/20 13:32 Pulse Rate 97 10/04/20 13:32 Respiratory Rate 18 10/04/20 13:32 Blood Pressure 165/106 H 10/04/20 13:32 Pulse Oximetry 99 10/04/20 13:32 ECG Data EKG #1: Interpretation: with sinus arrhythmia EKG Interpretation: sinus rhythm Discharge Plan Discharge Clinical Impression: Acute drug intoxication Qualifiers: Complication of substance-induced condition:
--- NOTE | 2020-10-04 14:43 | PC.NURSE ---
pt pleasantly refusing lab draw at this time asked for food and drink, sandwich and drink given pt speaking to provider about leaving.
[2020-10-04 15:00] VITALS: BP 142/99; PULSE 101; RESP 18; O2SAT 98
== END 2020-10-04 15:01 | disposition home or self-care (01) ==
PROVIDERS: Emergency Provider Emergency Medicine
DX: F19.920 Other psychoactive substance use, unspecified with intoxication, uncomplicated (principal)
CPT/HCPCS: 93005; 99283